=== PATIENT | female | born 1980 | race Caucasian/White ===

== ENCOUNTER 2023-07-02 08:07 | Observation (INO) ==
[~2023-07-02 08:07] MED LIST: Buffered Lidocaine 1% SYRIN 1 ml INTRADERM ONE; Dexamethasone IV 4 MG/ML VIAL 1 ml VIAL IV SLOW PU ONE; Dexamethasone IV 4 MG/ML VIAL 1 ml VIAL ONE; Famotidine IV 10 MG/ML 2 ml VIAL (20 mg) IV ONE; Lactated Ringers 1000 ml BAG 1,000 ML IV SCH; Lidocaine 2% PF 5 ML VIAL ONE; Ondansetron 4 mg VIAL 2 MG/ML 2 ml VIAL ONE; Phenylephrine IV 10 MG/ML 1 ml VIAL ONE; Propofol 10 MG/ML 20 ML BTL ONE; Rocuronium 50 mg VIAL 10 mg/ml 5 ml VIAL (50 mg) ONE; fentaNYL 100 mcg/2 ml 50 MCG/ML VIAL ONE
[2023-07-02] MEDS ORDERED: Chlorhexidine MOUTHWASH 0.12% 15 ML UDC ONE (08:18)
[2023-07-02] MEDS ORDERED: Dexamethasone IV 4 MG/ML VIAL 1 ml VIAL ONE (09:03)
[2023-07-02] MEDS ORDERED: ceFAZolin 2 GM PREMIX 2 GM/50 ML BAG ONE (09:03)
[2023-07-02] MEDS ORDERED: Famotidine IV 10 MG/ML 2 ml VIAL (20 mg) ONE (09:04)
[2023-07-02 09:15] LABS: Rapid COVID-19 Molecular Undetected (Undetected)
[2023-07-02] MEDS ORDERED: Lidocaine 1% w EPI 1:100,000 MDV 20 ML VIAL ONE (09:57)
[2023-07-02] MEDS ORDERED: Thrombin 5,000 UNITS(BOVINE) for Ultrasound Guided Pseudoaneursym ONE (09:57)
[2023-07-02] MEDS ORDERED: ceFAZolin VIAL VIAL ONE (09:57)
[2023-07-02] MEDS ORDERED: Gelfoam Sponge SIZE 100 SPONGE ONE (09:58)
[2023-07-02] MEDS ORDERED: Propofol 10 MG/ML 20 ML BTL ONE (10:02)
[2023-07-02] MEDS ORDERED: Midazolam 2 mg/2 ml VIAL 1 mg/ml 2 ml VIAL (2 mg) ONE (10:02)
[2023-07-02] MEDS ORDERED: Lidocaine 2% PF 5 ML VIAL ONE (10:02)
[2023-07-02] MEDS ORDERED: Rocuronium 50 mg VIAL 10 mg/ml 5 ml VIAL (50 mg) ONE ×2 (10:02→11:17)
[2023-07-02] MEDS ORDERED: fentaNYL 100 mcg/2 ml 50 MCG/ML VIAL ONE ×2 (10:02→11:47)
[2023-07-02] MEDS ORDERED: Thrombin 5,000 UNITS 1 APPLIC KIT - topical use - TOPICAL ONE (10:19)
[2023-07-02] MEDS ORDERED: Ondansetron 4 mg VIAL 2 MG/ML 2 ml VIAL ONE (11:40)
[2023-07-02] MEDS ORDERED: Senna TAB 8.6 mg TAB PO PRN (12:02)
[2023-07-02] MEDS ORDERED: Dextran 70/Hypromellose Tears Eye Drops 15 ml BTL (for Artificials Tears) BOTH EYES PRN (12:02)
[2023-07-02] MEDS ORDERED: Benzocaine/Menthol LOZ MT PRN (12:02)
[2023-07-02] MEDS ORDERED: Morphine 2 MG/ML SYRINGE IV PRN (12:02)
[2023-07-02] MEDS ORDERED: Phenol 1.4% Throat Spray BTL MT PRN (12:02)
[2023-07-02] MEDS ORDERED: Lactated Ringers 1000 ml BAG 1,000 ML IV SCH (13:00)
[2023-07-02 14:51] VITALS: BP 118/75
[2023-07-02] MEDS ORDERED: CMC:Minocycline 50 mg CAP (NF) PO SCH (21:00)
[2023-07-03] MEDS ORDERED: AMPHETAMINE PO SCH (09:00)
[2023-07-03] MEDS ORDERED: DEXTROAMPHETAMINE PO SCH (09:00)
== END 2023-07-02 18:20 | disposition home or self-care (01) ==
LOC: SSU 08:07 → OR 08:07
PROVIDERS: ADMIT Neurological Surgery; ATTEND Neurological Surgery